=== PATIENT | male | born 1980 | race Caucasian/White ===

== ENCOUNTER → 2022-05-29 09:34 | Outpatient (CLI) | payer BC, SELFPAY ==
--- NOTE | 2022-05-29 10:19 | MR_ITS ---
FINAL REPORT CLINICAL HISTORY: L2 L3 disc Lower back pain. PT STATES HIS OF BACK BREAKING 2 YEARS AGO SINCE THEN PAIN HAS GOTTEN WORSE. NOT BETTER. NUMBNESS/ TINGLING/ PAIN RADIATING DOWN BILATERAL EXTREMITIES. FINDINGS: Multiplanar MR imaging of the lumbar spine was performed without contrast. On the sagittal T2-weighted images, multilevel disc degeneration is seen. There is mild retrolisthesis of L4 on L5. There is no evidence of fracture. No bony mass is identified. The conus is seen at approximately the L1 level and has an unremarkable appearance. L1-2: There is no significant canal stenosis or neural foraminal narrowing. L2-3: There is no significant canal stenosis or neural foraminal narrowing. L3-4: Annular disc bulge with small left foraminal disc protrusion. There is mild left neural foraminal narrowing. L4-5: Annular disc bulge mild bilateral neural foraminal narrowing. L5-S1: There is an annular disc bulge without significant canal stenosis or neural foraminal narrowing. IMPRESSION: Disc protrusion at L3-4 with mild left neural foraminal narrowing. Mild bilateral neural foraminal narrowing at L4-5. Reviewed, Interpreted and Dictated by Yovany Munoz III, MD Transcribed by Lydia Ruiz Authenticated and [facility]
== END ==
PROVIDERS: PCP Family Medicine; Visit Provider Family Medicine
DX: M51.36 Other intervertebral disc degeneration, lumbar region (principal); M54.50 Low back pain, unspecified
CPT/HCPCS: 72148

== ENCOUNTER → 2022-07-02 18:11 | Outpatient (CLI) | payer BC, SELFPAY ==
[2022-07-02 15:10] LABS: Amphetamine/Metha Screen,Urine Negative ng/ml (<1000)
[2022-07-02 15:11] LABS: Barbiturates Screen,Urine Negative ng/ml (<200)
[2022-07-02 15:12] LABS: Benzodiazepines Screen,Urine Negative ng/ml (<200)
[2022-07-02 15:13] LABS: Cannabinoid Screen,Urine Negative ng/ml (<50)
[2022-07-02 15:14] LABS: Cocaine Screen,Urine Negative ng/ml (<300); Methadone Screen,Urine Negative ng/ml (<300)
[2022-07-02 15:15] LABS: Opiate Screen,Urine Negative ng/ml (<300)
[2022-07-02 15:16] LABS: Phencyclidine Screen,Urine Negative ng/ml (<25)
== END ==
PROVIDERS: PCP Family Medicine; Visit Provider Family Medicine
DX: G89.29 Other chronic pain (principal); M54.9 Dorsalgia, unspecified
CPT/HCPCS: 80305

== ENCOUNTER → 2022-07-30 14:55 | Outpatient (CLI) | payer BC, SELFPAY ==
[2022-07-30 17:11] LABS: Amphetamine/Metha Screen,Urine Negative ng/ml (<1000)
[2022-07-30 17:12] LABS: Barbiturates Screen,Urine Negative ng/ml (<200)
[2022-07-30 17:13] LABS: Benzodiazepines Screen,Urine Negative ng/ml (<200)
[2022-07-30 17:14] LABS: Cannabinoid Screen,Urine Positive ng/ml (<50)
[2022-07-30 17:15] LABS: Cocaine Screen,Urine Negative ng/ml (<300); Methadone Screen,Urine Negative ng/ml (<300)
[2022-07-30 17:16] LABS: Opiate Screen,Urine Negative ng/ml (<300); Phencyclidine Screen,Urine Negative ng/ml (<25)
== END ==
PROVIDERS: PCP Family Medicine; Visit Provider Family Medicine
DX: Z79.899 Other long term (current) drug therapy (principal)
CPT/HCPCS: 80305

== ENCOUNTER → 2022-12-29 14:31 | Outpatient (CLI) | payer BC, SELFPAY ==
[2022-12-29 12:54] LABS: Basophils % 0.4 % (0.1-2.0); Eosinophils # 0.1 K/mm3 (0.0-0.4); Eosinophils % 2.2 % (0.1-12.0); Hematocrit 36.1 % (42.0-52.0); Hemoglobin 12.1 g/dL (14.1-18.0); Lymphocytes # 1.4 K/mm3 (0.7-4.5); Lymphocytes % 23.7 % (10-50); Mean Corpuscular HGB Conc 33.4 g/dL (31.8-35.4); Mean Corpuscular Hemoglobin 30.3 pg (27.0-31.2); Mean Corpuscular Volume 90.6 fl (80-94); Mean Platelet Volume 7.9 fl (7.4-10.4); Monocytes # 0.6 K/mm3 (0.1-1.0); Monocytes % 10.4 % (1.7-9.3); Neutrophils # 3.7 K/mm3 (1.8-7.8); Neutrophils % 63.5 % (37.0-80.0); Platelet Count 265 K/mm3 (142-424); Red Blood Count 3.99 M/mm3 (4.60-6.20); Red Cell Distribution Width 15.7 % (11.5-17.5); White Blood Count 5.8 K/mm3 (4.8-10.8)
[2022-12-29 13:15] LABS: Alanine Aminotransferase 99 U/L (12-78); Albumin/Globulin Ratio 1.6 (1.1-1.8); Alkaline Phosphatase 70 U/L (38-126); Anion Gap 11.7 mEq/L (5-15); Aspartate Amino Transferase 82 U/L (17-59); Bilirubin,Total 0.4 mg/dl (0.2-1.3); Blood Urea Nitrogen 11 mg/dl (9-20); Calcium 8.6 mg/dl (8.4-10.2); Carbon Dioxide 28 mmol/L (22.0-30.0); Chloride 106 mmol/L (98-107); Chol/HDL Ratio 1.6 (1-3.5); Cholesterol 130 mg/dl (140-200); Estimated Glomerular Filt Rate 105 ml/min (>60); GFR (African American) 127 ML/MIN (>60); Globulin 2.5 g/dL (1.3-3.2); Glucose 82 mg/dl (74-100); HDL Cholesterol 83 mg/dl (40-60); Potassium 3.7 mmoL/L (3.5-5.1); Sodium 142 mmol/L (136-145); Total Protein,Serum 6.5 g/dl (6.3-8.2); Triglycerides 37 mg/dl (30-150); VLDL Cholesterol 7 mg/dL (0-40)
[2022-12-29 13:17] LABS: Amphetamine/Metha Screen,Urine Negative ng/ml (<1000); Barbiturates Screen,Urine Negative ng/ml (<200)
[2022-12-29 13:18] LABS: Benzodiazepines Screen,Urine Negative ng/ml (<200); Cannabinoid Screen,Urine Negative ng/ml (<50)
[2022-12-29 13:19] LABS: Cocaine Screen,Urine Negative ng/ml (<300)
[2022-12-29 13:20] LABS: Methadone Screen,Urine Negative ng/ml (<300); Opiate Screen,Urine Negative ng/ml (<300)
[2022-12-29 13:21] LABS: Phencyclidine Screen,Urine Negative ng/ml (<25)
[2022-12-29 13:26] LABS: Direct LDL Cholesterol 41.56 mg/dL (100-129)
[2022-12-29 13:28] LABS: 25-OH Vitamin D, Total 31.3 ng/mL (30-100)
[2022-12-29 13:37] LABS: Free T4 (Free Thyroxine) 1.15 ng/dl (0.78-2.19)
[2022-12-29 13:45] LABS: Thyroid Stimulating Hormone 0.39 uIU/mL (0.465-4.68)
[2023-01-01 12:09] LABS: HBsAg Screen Negative (Negative); HCV Ab Reactive (Non Reactive); Hep A Ab, IGM Negative (Negative); Hep B Core Ab, IgM Negative (Negative)
== END ==
PROVIDERS: PCP Emergency Medicine; Visit Provider Emergency Medicine
DX: R53.83 Other fatigue (principal); E66.3 Overweight; Z68.27 Body mass index [BMI] 27.0-27.9, adult; R94.5 Abnormal results of liver function studies; Z79.899 Other long term (current) drug therapy
CPT/HCPCS: 80053; 80061; 80074; 80305; 82306; 84439; 84443; 85025

== ENCOUNTER → 2023-01-31 23:24 | Outpatient (CLI) | payer BC, SELFPAY ==
[2023-01-31 20:31] LABS: Amphetamine/Metha Screen,Urine Negative ng/ml (<1000); Barbiturates Screen,Urine Negative ng/ml (<200); Benzodiazepines Screen,Urine Negative ng/ml (<200); Cannabinoid Screen,Urine Negative ng/ml (<50); Cocaine Screen,Urine Negative ng/ml (<300); Methadone Screen,Urine Negative ng/ml (<300); Opiate Screen,Urine Negative ng/ml (<300); Phencyclidine Screen,Urine Negative ng/ml (<25)
== END ==
PROVIDERS: PCP Emergency Medicine; Visit Provider Emergency Medicine
DX: Z79.899 Other long term (current) drug therapy (principal)
CPT/HCPCS: 80305; 87086

== ENCOUNTER → 2023-03-03 16:42 | Outpatient (CLI) | payer BC, SELFPAY ==
[2023-03-03 15:19] LABS: Amphetamine/Metha Screen,Urine Negative ng/ml (<1000); Benzodiazepines Screen,Urine Negative ng/ml (<200)
[2023-03-03 15:20] LABS: Barbiturates Screen,Urine Negative ng/ml (<200)
[2023-03-03 15:27] LABS: Methadone Screen,Urine Negative ng/ml (<300)
[2023-03-03 15:28] LABS: Cannabinoid Screen,Urine Negative ng/ml (<50)
[2023-03-03 15:29] LABS: Cocaine Screen,Urine Negative ng/ml (<300)
[2023-03-03 15:30] LABS: Opiate Screen,Urine Negative ng/ml (<300)
[2023-03-03 15:31] LABS: Phencyclidine Screen,Urine Negative ng/ml (<25)
== END ==
PROVIDERS: PCP Emergency Medicine; Visit Provider Emergency Medicine
DX: G89.29 Other chronic pain (principal); M54.9 Dorsalgia, unspecified
CPT/HCPCS: 80305

== ENCOUNTER → 2023-05-13 12:00 | Outpatient (CLI) | payer BC, SELFPAY ==
[2023-05-13 19:00] LABS: Basophils # 0.1 K/mm3 (0-0.2); Basophils % 0.7 % (0.1-2.0); Eosinophils % 0.4 % (0.1-12.0); Hemoglobin 17.6 g/dL (14.1-18.0); Lymphocytes # 1.6 K/mm3 (0.7-4.5); Lymphocytes % 15.8 % (10-50); Mean Corpuscular HGB Conc 33.9 g/dL (31.8-35.4); Mean Corpuscular Hemoglobin 29.6 pg (27.0-31.2); Mean Corpuscular Volume 87.3 fl (80-94); Mean Platelet Volume 9.6 fl (7.4-10.4); Monocytes # 0.5 K/mm3 (0.1-1.0); Monocytes % 4.9 % (1.7-9.3); Neutrophils % 78.3 % (37.0-80.0); Platelet Count 252 K/mm3 (142-424); Red Blood Count 5.96 M/mm3 (4.60-6.20); Red Cell Distribution Width 13.9 % (11.5-17.5); White Blood Count 10.2 K/mm3 (4.8-10.8)
[2023-05-13 19:19] LABS: Alanine Aminotransferase 70 U/L (12-78); Albumin Level 5.1 g/dl (3.5-5.0); Albumin/Globulin Ratio 1.5 (1.1-1.8); Alkaline Phosphatase 88 U/L (38-126); Anion Gap 19.2 mEq/L (5-15); Aspartate Amino Transferase 62 U/L (17-59); Bilirubin,Total 0.6 mg/dl (0.2-1.3); Blood Urea Nitrogen 11 mg/dl (9-20); Calcium 9.4 mg/dl (8.4-10.2); Carbon Dioxide 26 mmol/L (22.0-30.0); Chloride 99 mmol/L (98-107); Estimated Glomerular Filt Rate 92 ml/min (>60); GFR (African American) 111 ML/MIN (>60); Globulin 3.4 g/dL (1.3-3.2); Glucose 78 mg/dl (74-100); Potassium 4.2 mmoL/L (3.5-5.1); Sodium 140 mmol/L (136-145); Total Protein,Serum 8.5 g/dl (6.3-8.2)
[2023-05-13 19:20] LABS: Amphetamine/Metha Screen,Urine Negative ng/ml (<1000)
[2023-05-13 19:21] LABS: Barbiturates Screen,Urine Negative ng/ml (<200)
[2023-05-13 19:22] LABS: Benzodiazepines Screen,Urine Negative ng/ml (<200); Cannabinoid Screen,Urine Negative ng/ml (<50)
[2023-05-13 19:23] LABS: Cocaine Screen,Urine Negative ng/ml (<300)
[2023-05-13 19:24] LABS: Methadone Screen,Urine Negative ng/ml (<300); Opiate Screen,Urine Negative ng/ml (<300)
[2023-05-13 19:25] LABS: Phencyclidine Screen,Urine Negative ng/ml (<25)
[2023-05-15 11:46] LABS: HIV Screen 4th Generation wRfx Non Reactive (Non Reactive)
[2023-05-17 18:56] LABS: HCV Genotype Charge YES; Hepatitis C Genotype 1a (.)
[2023-05-23 21:34] LABS: ALT (SGPT) P5P 62; Alpha 2-Macroglobulins, Qn 272; Apolipoprotein A-1 179; Bilirubin, Total 0.3; GGT 166; Haptoglobin 87
[2023-05-23 21:35] LABS: Fibrosis Score 0.36; Fibrosis Stage F1-F2; Hep A Ab, Total NEGATIVE; Necroinflammat Activity Grade A1-A2; Necroinflammat Activity Score 0.39
[2023-05-23 21:36] LABS: Hepatitis B Surface Antigen NON REACTIVE; Hepatitis C Antibody REACTIVE
[2023-05-23 21:37] LABS: Hep B Surface Ab, Qual NEGATIVE
[2023-05-23 21:38] LABS: Hep B Core Ab, Total NEGATIVE
== END ==
PROVIDERS: PCP Emergency Medicine; Visit Provider Emergency Medicine
DX: B19.20 Unspecified viral hepatitis C without hepatic coma (principal); Z79.899 Other long term (current) drug therapy
CPT/HCPCS: 80053; 80305; 81596; 85025; 86703; 86704; 86706; 86708; 87340; 87380; 87522; 87902; G0432

== ENCOUNTER 2023-07-14 12:27 | Outpatient (CLI) | payer BC, SELFPAY ==
[2023-07-14 13:51] LABS: Barbiturates Screen,Urine Negative ng/ml (<200)
[2023-07-14 13:52] LABS: Amphetamine/Metha Screen,Urine Negative ng/ml (<1000); Benzodiazepines Screen,Urine Negative ng/ml (<200)
[2023-07-14 13:55] LABS: Cannabinoid Screen,Urine Positive ng/ml (<50); Cocaine Screen,Urine Negative ng/ml (<300)
[2023-07-14 13:56] LABS: Methadone Screen,Urine Negative ng/ml (<300)
[2023-07-14 13:57] LABS: Opiate Screen,Urine Negative ng/ml (<300); Phencyclidine Screen,Urine Negative ng/ml (<25)
== END 2023-07-14 23:59 ==
LOC: LAB.DROPOF 12:27
PROVIDERS: PCP Family Medicine; Visit Provider Family Medicine
DX: Z79.899 Other long term (current) drug therapy (principal)
CPT/HCPCS: 80307

== ENCOUNTER 2023-09-05 10:53 | Outpatient (CLI) | payer BC, SELFPAY ==
--- NOTE | 2023-09-05 10:53 | US_ITS ---
FINAL REPORT CLINICAL HISTORY: Hypertension FINDINGS: RENAL ULTRASOUND Ultrasound images of the kidneys were obtained. Limited images of the liver parenchyma demonstrates normal echogenicity. The gallbladder is partially collapsed. There is a gallstone with mild gallbladder wall thickening. The spleen is borderline enlarged at 14.5 cm. The right kidney measures 10.1 cm in length. It is normal echogenicity. There is no hydronephrosis. The left kidney measures 11.5 cm in length. It is normal echogenicity. There is no hydronephrosis. IMPRESSION: Normal renal ultrasound. Incidental finding of cholelithiasis with mild gallbladder wall thickening. Incidental finding of borderline splenomegaly. Reviewed, Interpreted and Dictated by Yovany Munoz III, MD Transcribed by Jennifer Leija Authenticated and [facility]
--- NOTE | 2023-09-05 11:08 | CA_ITS ---
FINAL REPORT TECHNIQUE: Grayscale, color Doppler and duplex Doppler ultrasound of the kidneys, aorta and renal arteries was performed. Multiple velocities were measured. CLINICAL HISTORY: HTN,HLD COMPARISON: None FINDINGS: Aorta velocity: 125 cm/sec Right kidney: 10.8 cm. No evidence of hydronephrosis or mass. Right intrarenal RI: 0.60-0.70 Right renal artery velocity: 219 cm/sec. Right RAR (Renal artery-Aortic Ratio): 1.75 Left Kidney: 11.6 cm. No evidence of hydronephrosis or mass. Left intrarenal RI: 0.48-0.63 Left renal artery velocity: 154 cm/sec. Left RAR (Renal Artery-Aortic Ratio): 1.23 IMPRESSION: No evidence of significant renal artery stenosis. CT angiogram or postcontrast MR angiogram would be more sensitive for evaluation of possible renal artery stenosis. Reviewed, Interpreted and Dictated by Yovany Munoz III, MD Transcribed by Destini Fontenot Authenticated and [facility]
== END 2023-09-05 23:59 ==
LOC: RAD 10:53
PROVIDERS: PCP Internal Medicine; Visit Provider Family Medicine
DX: I10 Essential (primary) hypertension (principal)
CPT/HCPCS: 76770; 93976

== ENCOUNTER 2023-09-07 11:51 | Outpatient (CLI) | payer BC, SELFPAY ==
[2023-09-07 12:58] LABS: Prostate Specific Ag Screen 1.9 ng/ml (0.0-4.0)
== END 2023-09-07 23:59 ==
LOC: LAB.DROPOF 11:51
PROVIDERS: PCP Family Medicine; Visit Provider Family Medicine
DX: R33.9 Retention of urine, unspecified (principal); R35.0 Frequency of micturition; N39.43 Post-void dribbling; Z12.5 Encounter for screening for malignant neoplasm of prostate
CPT/HCPCS: G0103